=== PATIENT | male | born 1995 | race Caucasian/White ===

== ENCOUNTER 2017-04-11 18:13 | Emergency (ER) | payer OTHER ==
[2017-04-11 18:23] VITALS: BP 122/77; PULSE 77; RESP 18; TEMP 98.4
[2017-04-11] MEDS ORDERED: IBUPROFEN 600 MG TAB PO STA (18:56)
--- NOTE | 2017-04-11 18:59 | ED ---
General Adult HPI - General Chief complaint: Upper Respiratory Infection Stated complaint: Nauseated, diarrhea, congested Time Seen by Provider: 04/11/17 18:50 Source: patient, RN notes reviewed Mode of arrival: ambulatory Limitations: no limitations - History of Present Illness Initial comments: 21-year-old male presents to the emergency department with a chief complaint of cough and runny nose and congestion. Patient has extensive history for the past 2 weeks or so. He does continue to smoke. He states he had fever at the beginning of fever since resolved. Patient states he has had some nausea with it. Patient denies any increased vomiting or diarrhea. Patient denies any other symptoms at this time. Patient states is concerned due to his continued cough and congestion states that he should be evaluated.Patient denies any recent shortness of breath, chest pain, back pain, abdominal pain, nausea vomiting, numbness or tingling, dysuria or hematuria, constipation or diarrhea, headaches or visual changes, or any other current symptoms. - Related Data Home Medications Medication Instructions Recorded Confirmed Sertraline [Zoloft] 50 mg PO DAILY 12/21/15 04/25/16 Albuterol Inhaler [Ventolin Hfa 1 - 2 puff INHALATION Q6HR PRN 04/25/16 04/25/16 Inhaler] Previous Rx's Medication Instructions Recorded Albuterol Inhaler [Ventolin Hfa 1 - 2 puff INHALATION Q4-6H PRN #1 04/11/17 Inhaler] inhaler Azithromycin [Zithromax] 250 mg PO DIRECTED #6 tab 04/11/17 predniSONE 50 mg PO DAILY #5 tab 04/11/17 Allergies Allergy/AdvReac Type Severity Reaction Status Date / Time No Known Allergies Allergy Verified 04/25/16 05:58 Review of Systems ROS Statement: Those systems with pertinent positive or pertinent negative responses have been documented in the HPI. ROS Other: All systems not noted in ROS Statement are negative. Past Medical History Past Medical History: No Reported History Additional Past Medical History / Comment(s): multiplescoliosis History of Any Multi-Drug Resistant Organisms: None Reported Past Surgical History: No Surgical Hx Reported Past Psychological History: Depression Smoking Status: Current every day smoker Past Alcohol Use History: Rare Past Drug Use History: None Reported General Exam - General Exam Comments Initial Comments: General exam: Alert, active, comfortable in no apparent distress Head: Normocephalic Eyes: Normal reaction of pupils, equal size, normal range of extraocular motion Ears: normal external ear canals, pink tympanic membranes with normal cone of light Nose: clear with pink turbinates Throat: no erythema or exudates with normal sized tonsils Neck: no masses, no nuchal rigidity Chest: no chest wall deformity Lungs: equal air entry with no crackles or wheeze Abdomen: no hepatosplenomegaly, normal bowel sounds, no guarding or rigidity Spine: no scoliosis or deformity Skin: no rashes Neurological: No focal deficits, tone is normal in all 4 extremities Limitations: no limitations Course Vital Signs 04/11/17 18:18 Temperature 98.4 F Pulse Rate 77 Respiratory 18 Rate Blood Pressure 122/77 O2 Sat by Pulse 99 Oximetry Medical Decision Making - Medical Decision Making 21-year-old male presents emergency 5 chief complaint of cough cold congestion- like symptoms. This time x-rays reviewed. This was discussed patient with have a mild bronchitis. We discussed that we will the patient steroids as well as an albuterol inhaler. We discussed return parameters and follow-up outpatient family's questions. He stated the [facility] management plan. All questions have been answered. They will be discharged. - Radiology Data Radiology results: report reviewed, image reviewed Disposition Clinical Impression: Acute bronchitis Disposition: HOME SELF-CARE Condition: Stable Instructions: Acute Bronchitis (ED) Additional Instructions: Please use medication as discussed. Please follow up with family doctor if symptoms have not improved over the next two days. Please return to the emergency room if your symptoms increase or worsen or for any other concerns. Prescriptions: Albuterol Inhaler [Ventolin Hfa Inhaler] 1 - 2 puff INHALATION Q4-6H PRN #1 inhaler PRN Reason: Cough Azithromycin [Zithromax] 250 mg PO DIRECTED #6 tab predniSONE 50 mg PO DAILY #5 tab Referrals: Joel Ray MD [Primary Care Provider] - 1-2 days Time of Disposition: 19:19
--- NOTE | 2017-04-11 19:15 | XR ---
EXAMINATION TYPE: XR chest 2V DATE OF EXAM: 04/11/2017 COMPARISON: 12/31/2015 HISTORY: Cough TECHNIQUE: Frontal and lateral views of the chest are obtained. FINDINGS: There is no focal air space opacity, pleural effusion, or pneumothorax seen. The cardiac silhouette size is within normal limits. The osseous structures are intact. IMPRESSION: No acute cardiopulmonary process.
== END 2017-04-11 19:15 | disposition home or self-care (01) ==
LOC: EC 18:13
DX: J20.9 Acute bronchitis, unspecified (principal); F17.200 Nicotine dependence, unspecified, uncomplicated; Z79.899 Other long term (current) drug therapy
CPT/HCPCS: 71020; 99283

== ENCOUNTER 2018-10-05 17:30 | Emergency (ER) | payer OTHER ==
[2018-10-05 17:51] VITALS: TEMP 98.6
[2018-10-05] MEDS ORDERED: KETOROLAC 30 MG/ML 1 ML VIAL IM STA (18:19)
[2018-10-05] MEDS ORDERED: ONDANSETRON ODT 4 MG TAB PO STA (18:19)
--- NOTE | 2018-10-05 18:21 | ED ---
Abdominal Pain HPI - General Chief Complaint: Abdominal Pain Stated Complaint: Vomiting, abd pain Time Seen by Provider: 10/05/18 17:54 Source: patient Mode of arrival: ambulatory Limitations: no limitations - History of Present Illness Initial Comments: 22-year-old male patient presents to the emergency department today for evaluation of left upper quadrant abdominal pain, vomiting, diarrhea. Patient states the symptoms started this morning. States he has had several episodes of both vomiting and diarrhea. Denies any hematochezia, melena, hematemesis. Patient denies any fevers or chills with this. Denies any sick contacts or recent travel. States he has a history of multiple sclerosis but is otherwise healthy. Upon evaluation patient is eating snacks and drinking Mountain Dew. States that his nausea and diarrhea have improved however the pain in the left upper quadrant persists. States it does radiate through to his back. States it hurts worse with movement. Patient denies any recent rash, shortness breath, chest pain, numbness, tingling, dizziness, weakness, hematuria, dysuria, urinary urgency, urinary frequency, headache, visual changes, or any other complaints. - Related Data Previous Rx's Medication Instructions Recorded Acetaminophen-Codeine 300-30mg 1 tab PO Q4H PRN #20 tablet 08/14/17 [Tylenol #3] Ibuprofen 600 mg PO TID #20 tablet 08/14/17 Acetaminophen [Tylenol] 1,000 mg PO Q6H PRN #30 tab 10/05/18 Ibuprofen [Motrin] 600 mg PO Q8HR PRN #30 tab 10/05/18 Allergies Allergy/AdvReac Type Severity Reaction Status Date / Time No Known Allergies Allergy Verified 10/05/18 17:51 Review of Systems ROS Statement: Those systems with pertinent positive or pertinent negative responses have been documented in the HPI. ROS Other: All systems not noted in ROS Statement are negative. Past Medical History Past Medical History: No Reported History Additional Past Medical History / Comment(s): multiplescoliosis History of Any Multi-Drug Resistant Organisms: None Reported Past Surgical History: No Surgical Hx Reported Past Psychological History: Depression Smoking Status: Current every day smoker Past Alcohol Use History: Rare Past Drug Use History: None Reported General Exam Limitations: no limitations General appearance: alert, in no apparent distress, other (Physical well- developed, well-nourished adult male patient in no acute distress. Vital signs upon presentation are temperature 98.6F, pulse 89, respirations 16, blood pressure 103/68, pulse ox 98% on room air.) Eye exam: Present: normal appearance, PERRL, EOMI. Absent: scleral icterus, conjunctival injection, periorbital swelling Respiratory exam: Present: normal lung sounds bilaterally. Absent: respiratory distress, wheezes, rales, rhonchi, stridor Cardiovascular Exam: Present: regular rate, normal rhythm, normal heart sounds. Absent: systolic murmur, diastolic murmur, rubs, gallop, clicks GI/Abdominal exam: Present: soft, tenderness (Left upper quadrant tenderness), normal bowel sounds. Absent: distended, guarding, rebound, rigid Neurological exam: Present: alert, oriented X3, CN II-XII intact Psychiatric exam: Present: normal affect, normal mood Skin exam: Present: warm, dry, intact, normal color. Absent: rash Course Vital Signs 10/05/18 10/05/18 17:47 19:05 Temperature 98.6 F Pulse Rate 89 70 Respiratory 16 18 Rate Blood Pressure 103/68 117/67 O2 Sat by Pulse 98 97 Oximetry Medical Decision Making - Medical Decision Making 22-year-old male patient presented to the emergency department today for evaluation of vomiting and left upper quadrant abdominal pain. Physical examination did reveal some tenderness of the left upper quadrant. Upon evaluation patient was eating grits sandwich next and drinking Mountain Dew. States his nausea is improved basal having some tenderness. Vital signs are stable. Urinalysis shows no abnormalities. No ketones. KUB showed no abnormalities. Patient's tolerating oral intake. He is afebrile. He'll be discharged home at this time with starter pack for [facility]. He is instructed to follow-up with his primary care physician for recheck in 1-2 days. Return parameters were discussed in detail. He verbalizes understanding and agrees with this plan - Lab Data Lab Results 10/05/18 Range/Units Unknown Urine Color Yellow Urine Appearance Clear (Clear) Urine pH 5.5 (5.0-8.0) Ur Specific [place] 1.023 (1.001-1.035) Urine Protein Trace H (Negative) Urine Glucose (UA) Negative (Negative) Urine Ketones Negative (Negative) Urine Blood Negative (Negative) Urine Nitrite Negative (Negative) Urine Bilirubin Negative (Negative) Urine Urobilinogen 2.0 (<2.0) mg/dL Ur Leukocyte Esterase Negative (Negative) - Radiology Data Radiology results: report reviewed, image reviewed KUB x-ray of the abdomen is obtained. Report was reviewed in its entirety. Impression by Dr. Jonas shows overall nonobstructive bowel gas pattern. Disposition Clinical Impression: Gastroenteritis Disposition: HOME SELF-CARE Condition: Good Instructions (If sedation given, give patient instructions): Gastroenteritis (ED) Additional Instructions: Start with clear liquid diet and advance as tolerated. Follow-up with your primary care physician for recheck in 1-2 days. Return to the emergency department immediately for any new, worsening, or concerning symptoms. Prescriptions: Ibuprofen [Motrin] 600 mg PO Q8HR PRN #30 tab PRN Reason: Pain Acetaminophen [Tylenol] 1,000 mg PO Q6H PRN #30 tab PRN Reason: Pain Is patient prescribed a controlled substance at d/c from ED?: No Referrals: Joel Ray MD [Primary Care Provider] - 1-2 days Time of Disposition: 18:58
[2018-10-05 18:40] LABS: Appearance,Urine Clear (Clear); Bilirubin,Urine Negative (Negative); Blood,Urine Negative (Negative); Color,Urine Yellow; Glucose,Urine (UA) Negative (Negative); Ketones,Urine Negative (Negative); Leukocyte Esterase,Urine Negative (Negative); Nitrite,Urine Negative (Negative); PH, Urine 5.5 (5.0-8.0); Protein,Urine Trace (Negative); Specific Gravity,Urine 1.023 (1.001-1.035)
--- NOTE | 2018-10-05 18:45 | XR ---
EXAMINATION TYPE: XR KUB DATE OF EXAM: 10/05/2018 COMPARISON: NONE HISTORY: Pain TECHNIQUE: Single supine KUB image of the abdomen is obtained FINDINGS: Small bowel demonstrates no evidence for dilatation or air fluid levels. Gas and fecal material is seen in non-distended colon. No convincing evidence for pneumoperitoneum. No unusual calcifications. The lung bases are clear. The osseous structures are intact. IMPRESSION: 1. Overall nonobstructive bowel gas pattern.
[2018-10-05] MEDS ORDERED: ONDANSETRON 4 MG ODT STARTER PACK 2 TAB BTL PO STA (18:56)
[2018-10-05 19:06] VITALS: BP 117/67; PULSE 70; RESP 18
== END 2018-10-05 19:06 | disposition home or self-care (01) ==
LOC: EC 17:30
DX: K52.9 Noninfective gastroenteritis and colitis, unspecified (principal); F17.200 Nicotine dependence, unspecified, uncomplicated; Z87.39 Personal history of other diseases of the musculoskeletal system and connective tissue
CPT/HCPCS: 81003; 74018; 99284; 96372; J1885; S0119

== ENCOUNTER 2021-02-18 02:59 | Inpatient (IN) | payer MEDICARE, MEDICAID ==
--- NOTE | 2021-02-18 03:15 | ED ---
Psych HPI - General Chief Complaint: Psychiatric Symptoms Stated Complaint: Mental Health Time Seen by Provider: 02/18/21 03:01 Source: patient, RN notes reviewed, old records reviewed Mode of arrival: ambulatory Limitations: no limitations - History of Present Illness Initial Comments: This is a 25-year-old male to the ER for psychiatric evaluation. Patient states he does want to kill himself patient is off her psychiatric meds is currently homeless and has no open the future. Patient here for suicidal thoughts wants to kill himself MD Complaint: suicidal ideation -: month(s) Associated Psychiatric Symptoms: depression, suicidal ideation History of same: Yes Quality: getting worse Improves With: none Worsens With: none Context: not taking psychiatric medications, significant life stressor Associated Symptoms: denies other symptoms Treatments Prior to Arrival: placed on mental health hold If Self Harm: admits thoughts of self harm - Related Data Previous Rx's Medication Instructions Recorded Acetaminophen-Codeine 300-30mg 1 tab PO Q4H PRN #20 tablet 08/14/17 [Tylenol #3] Ibuprofen 600 mg PO TID #20 tablet 08/14/17 Acetaminophen [Tylenol] 1,000 mg PO Q6H PRN #30 tab 10/05/18 Ibuprofen [Motrin] 600 mg PO Q8HR PRN #30 tab 10/05/18 Allergies Allergy/AdvReac Type Severity Reaction Status Date / Time amoxicillin Allergy Rash/Hives Verified 02/18/21 03:05 Penicillins Allergy Rash/Hives Verified 02/18/21 03:05 Review of Systems ROS Statement: Those systems with pertinent positive or pertinent negative responses have been documented in the HPI. ROS Other: All systems not noted in ROS Statement are negative. Past Medical History Past Medical History: No Reported History Additional Past Medical History / Comment(s): multiplescoliosis History of Any Multi-Drug Resistant Organisms: None Reported Past Surgical History: No Surgical Hx Reported Past Psychological History: Anxiety, Depression, Schizophrenia Smoking Status: Former smoker Past Alcohol Use History: Rare Past Drug Use History: Marijuana General Exam Limitations: no limitations General appearance: alert, in no apparent distress Head exam: Present: atraumatic, normocephalic, normal inspection Eye exam: Present: normal appearance, PERRL, EOMI. Absent: scleral icterus, conjunctival injection, periorbital swelling ENT exam: Present: normal exam, mucous membranes moist Neck exam: Present: normal inspection. Absent: tenderness, meningismus, lymphadenopathy Respiratory exam: Present: normal lung sounds bilaterally. Absent: respiratory distress, wheezes, rales, rhonchi, stridor Cardiovascular Exam: Present: regular rate, normal rhythm, normal heart sounds. Absent: systolic murmur, diastolic murmur, rubs, gallop, clicks GI/Abdominal exam: Present: soft, normal bowel sounds. Absent: distended, tenderness, guarding, rebound, rigid Extremities exam: Present: normal inspection, full ROM, normal capillary refill. Absent: tenderness, pedal edema, joint swelling, calf tenderness Back exam: Present: normal inspection Neurological exam: Present: alert, oriented X3, CN II-XII intact Psychiatric exam: Present: normal affect, normal mood Skin exam: Present: warm, dry, intact, normal color. Absent: rash Course Vital Signs 02/18/21 03:00 Temperature 97.5 F L Pulse Rate 72 Respiratory 20 Rate Blood Pressure 115/71 O2 Sat by Pulse 99 Oximetry - Reevaluation(s) Reevaluation #1: 02/18/21 03:15 Medical records reviewed Reevaluation #2: 02/18/21 05:26 Medically clear for psychiatric evaluation Medical Decision Making - Medical Decision Making 25 male seen and has been eval by psychiatry, patient will be admitted for psychiatric evaluation and treatment Disposition Clinical Impression: Depression, Suicidal ideation Disposition: TRANSFER TO PSYCH HOSP/UNIT Condition: Fair
[2021-02-18] MEDS ORDERED: MAGNESIUM HYDROXIDE 2,400 MG/10 ML CUP PO PRN (05:22)
[2021-02-18] MEDS ORDERED: MAG HYDROX/AL HYDROX/SIMETH 30 ML CUP PO PRN (05:22)
[2021-02-18] MEDS ORDERED: ACETAMINOPHEN TAB 325 MG TAB PO PRN (05:22)
[2021-02-18] MEDS ORDERED: LORazepam 2 MG/ML INJ IM PRN (05:31)
[2021-02-18] MEDS ORDERED: HALOPERIDOL LACTATE 5 MG/ML 1 ML VIAL IM PRN (05:32)
[2021-02-18] MEDS ORDERED: haloperidoL 5 MG TAB PO PRN (05:32)
[2021-02-18 07:22] VITALS: RESP 16
[2021-02-18 10:02] LABS: Basophils # (A) 0.1 k/uL (0-0.2); Basophils % (A) 1 %; Eosinophils # (A) 0.4 k/uL (0-0.7); Eosinophils % (A) 6 %; HCT 42.6 % (39.0-53.0); HGB 15.2 gm/dL (13.0-17.5); Lymphocytes # (A) 3.1 k/uL (1.0-4.8); Lymphocytes % (A) 39 %; MCH 32.1 pg (25.0-35.0); MCHC 35.6 g/dL (31.0-37.0); MCV 90.2 fL (80.0-100.0); Mean Platelet Volume 6.5; Monocytes # (A) 0.5 k/uL (0-1.0); Monocytes % (A) 6 %; Neutrophils # (A) 3.7 k/uL (1.3-7.7); Neutrophils % (A) 46 %; Platelet Count 290 k/uL (150-450); RBC 4.72 m/uL (4.30-5.90); RDW 13.4 % (11.5-15.5)
[2021-02-18 10:16] LABS: ALT 11 U/L (4-49); AST 23 U/L (17-59); African American GFR (CKD) >90 (>60 ml/min/1.73 sqM); Albumin 3.7 g/dL (3.5-5.0); Alkaline Phosphatase 68 U/L (38-126); Anion Gap 6 mmol/L; Blood Urea Nitrogen 14 mg/dL (9-20); Calcium 9.5 mg/dL (8.4-10.2); Carbon Dioxide 26 mmol/L (22-30); Chloride 106 mmol/L (98-107); Glucose 87 mg/dL (74-99); Non-African American GFR(CKD) >90 (>60 ml/min/1.73 sqM); Sodium 138 mmol/L (137-145); Total Bilirubin 0.5 mg/dL (0.2-1.3); Total Protein 6.2 g/dL (6.3-8.2)
[2021-02-18] MEDS: NICOTINE 14MG/24HR PATCH TRANSDERM SCH (11:48)
--- NOTE | 2021-02-18 12:07 | P.HP ---
Psychiatric H&P - . H&P Date: 02/18/21 History & Physical: Allergies Allergy/AdvReac Type Severity Reaction Status Date / Time amoxicillin Allergy Rash/Hives Verified 02/18/21 03:05 Penicillins Allergy Rash/Hives Verified 02/18/21 03:05 Vital Signs Temp 98.5 F 02/18/21 05:40 Pulse 72 02/18/21 05:40 Resp 16 02/18/21 05:40 BP 127/68 02/18/21 05:40 Pulse Ox 98 02/18/21 05:40 Intake & Output 02/17/21 02/18/21 02/18/21 18:59 06:59 18:59 Weight 71.753 kg Laboratory Last Values WBC 8.0 k/uL (3.8-10.6) 02/18/21 09:40 RBC 4.72 m/uL (4.30-5.90) 02/18/21 09:40 Hgb 15.2 gm/dL (13.0-17.5) 02/18/21 09:40 Hct 42.6 % (39.0-53.0) 02/18/21 09:40 MCV 90.2 fL (80.0-100.0) 02/18/21 09:40 MCH 32.1 pg (25.0-35.0) 02/18/21 09:40 MCHC 35.6 g/dL (31.0-37.0) 02/18/21 09:40 RDW 13.4 % (11.5-15.5) 02/18/21 09:40 Plt Count 290 k/uL (150-450) 02/18/21 09:40 MPV 6.5 02/18/21 09:40 Neutrophils % 46 % 02/18/21 09:40 Lymphocytes % 39 % 02/18/21 09:40 Monocytes % 6 % 02/18/21 09:40 Eosinophils % 6 % 02/18/21 09:40 Basophils % 1 % 02/18/21 09:40 Neutrophils # 3.7 k/uL (1.3-7.7) 02/18/21 09:40 Lymphocytes # 3.1 k/uL (1.0-4.8) 02/18/21 09:40 Monocytes # 0.5 k/uL (0-1.0) 02/18/21 09:40 Eosinophils # 0.4 k/uL (0-0.7) 02/18/21 09:40 Basophils # 0.1 k/uL (0-0.2) 02/18/21 09:40 Sodium 138 mmol/L (137-145) 02/18/21 09:40 Potassium 4.0 mmol/L (3.5-5.1) 02/18/21 09:40 Chloride 106 mmol/L (98-107) 02/18/21 09:40 Carbon Dioxide 26 mmol/L (22-30) 02/18/21 09:40 Anion Gap 6 mmol/L 02/18/21 09:40 BUN 14 mg/dL (9-20) 02/18/21 09:40 Creatinine 0.72 mg/dL (0.66-1.25) 02/18/21 09:40 Est GFR (CKD-EPI)AfAm >90 (>60 ml/min/1.73 sqM) 02/18/21 09:40 Est GFR (CKD-EPI)NonAf >90 (>60 ml/min/1.73 sqM) 02/18/21 09:40 Glucose 87 mg/dL (74-99) 02/18/21 09:40 Calcium 9.5 mg/dL (8.4-10.2) 02/18/21 09:40 Total Bilirubin 0.5 mg/dL (0.2-1.3) 02/18/21 09:40 AST 23 U/L (17-59) 02/18/21 09:40 ALT 11 U/L (4-49) 02/18/21 09:40 Alkaline Phosphatase 68 U/L (38-126) 02/18/21 09:40 Total Protein 6.2 g/dL (6.3-8.2) L 02/18/21 09:40 Albumin 3.7 g/dL (3.5-5.0) 02/18/21 09:40 TSH 0.631 mIU/L (0.465-4.680) 02/18/21 09:40 02/18/21 11:43 Identification: Laron Hester is a 25 years old single white male living in [facility]. He was admitted to [facility] on 02/18/2021 since he reported of feeling depressed and having suicide thoughts. History of present illness: Patient said he has been depressed since age 12 or 13. He said it is continuous and gets worse lasting for weeks to months. When he is badly depressed he does not do anything and 6 in silence. He did not describe any other symptoms of depression. He said he had taken Zoloft and Paxi l in the past from his family doctor and apparently Paxil had helped him. Even though he reports of being depressed since 12 or 13 years of age which gets worse lasting for weeks to months he has not seen a psychiatrist, therapist and did not have any ongoing treatment. He could not tell me if he had manic episodes. He said he was having suicidal thoughts on and off for a long time in the past, had tried to cut himself and to drown himself in addition to overdosing a few times. However he never required any treatment for this. He said he had cut himself several times and to collect up he got several tattoos. I could not see any scars from cutting himself. He later on said spontaneously that he is a schizophrenic also. He said he hears voices which are mumbling and they do not tell him to do anything. He denied delusional thinking. He had never taken any medications for "schizophrenia". He said he does not have any anger management issues. Previous psychiatric history/drug and alcohol abuse: He was never in the psychiatric hospital and was never treated by a mental health professional's even though he said he has been depressed for the last about 12-13 years. He said he was a heavy alcoholic for 2 years and his last drink was 2 years ago. He had blackouts but he did not have any DUI or PI. He said he was smoking meant for 3 years and his last smoke was 1 month ago he said he was smoking pot 18 of an ounce a day since age 13. His last use was a month ago. He has been smoking a pack and half of cigarettes a day since age 12. He said he had graduated from high school was in special ed and was a slow learner. He had repeated 11th grade. He said he used to cut classes and was not paying attention to teacher and was suspended several times and was also kicked out he said he was in alternate school for 2 weeks. He said he did not have any problems with juvenile court system or [place] court system once she became an adult. He was raised by his parents and he said he does not know anything about his family since all of them mood [id number]. Currently he is homeless for the last few days and [place]. He said he was living with a friend of his, they did not get along and he was asked to leave. He did not want to discuss about the details of the problems. He does not know where he will go when he leaves the hospital. He is single and unemployed he has Medicare and Medicaid and gets probably SSI check. Previous medical history: He said he has COPD and is not on any medication. He is ALLERGIC to penicillin and amoxicillin. He did not have any surgery. Family history: He said his family moved [id number] and does not know anything about his family history of medical/psychiatric problems. Mental status examination: This is a right ambulatory male with adequate hygiene. He is wearing hospital gown. His hair is poorly combed and looks rather unkempt. His left eyebrow and earlobes are pierced and has a jewelry on his left eyebrow. He has multiple tattoos all over the body. He does not show any psychomotor agitation or retardation. His speech is spontaneous relevant and goal-directed. His mood is euthymic and affect is appropriate to the thought content and it does not match with his reported history of depression or schizophrenia. He said he is still having suicidal thoughts. Denies homicidal thoughts. Reports of hallucinations. But he does not have any objective signs of psychosis. Denies delusional thinking. He is well oriented with good memory concentration and general fund of knowledge. However he said he does not know anything about his family since all of them had moved [id number]. His insight is either poor or made up and judgment is impaired as evidenced by substance abuse not having a place to live and sleeping in the park. Diagnostic impression: 1. Even though he reports symptoms of depression his clinical findings do not support that. It is very likely that he is making up these symptoms since he is homeless and needs a place to live. 2. Cannabis use disorder severe. 3. Stimulant use disorder moderate to severe. 4. Alcohol use disorder severe in remission. 5. Personality disorder unspecified with borderline features. Treatment plan: He will have physical examination and psychosocial evaluation. He will be observed/supervised regarding his reported suicidal thoughts and self abusive behavior. I will start him on Paxil per his request even though it does not appear to be indicated. He will attend group and individual therapy sessi ons. Discharge with outpatient follow-up.
[2021-02-18 17:51] LABS: Hemoglobin A1C 4.5 % (4.0-6.0)
[2021-02-18 20:10] LABS: Appearance,Urine Cloudy (Clear); Bilirubin,Urine Negative (Negative); Blood,Urine Negative (Negative); Calcium Oxalate Crystals,Urine Many /hpf; Color,Urine Yellow; Glucose,Urine (UA) Negative (Negative); Ketones,Urine Negative (Negative); Leukocyte Esterase,Urine Moderate (Negative); Mucus,Urine Many /hpf; Nitrite,Urine Negative (Negative); PH, Urine 5.5 (5.0-8.0); Protein,Urine Trace (Negative); RBC,Urine 3 /hpf (0-5); Specific Gravity,Urine 1.026 (1.001-1.035); WBC,Urine 7 /hpf (0-5)
[2021-02-18] MEDS: LORazepam 1 MG TAB PO PRN (22:10)
--- NOTE | 2021-02-18 22:34 | CONS ---
CONSULTATION CHIEF COMPLAINT: Major depression. HISTORY OF PRESENT ILLNESS: This is another admission for this 25-year-old white male. He had been living in [facility] for several days and becoming more depressed and despondent. He considered suicide and then called somebody who told him to go to the emergency room and he was admitted. REVIEW OF SYSTEMS: He has had no headaches, seizures, chest pain, shortness of breath, abdominal pain, nausea, vomiting, hematemesis, melena, hematochezia, jaundice, renal failure, frequency, urgency and dysuria, diabetes, etc. Past medical history, family history, personal and social histories reveal that he is ALLERGIC to PENICILLIN. He has not been seen in the office since May 2019. He does smoke. He does not drink heavily or use drugs. PHYSICAL EXAMINATION: Blood pressure is 132/80 with a pulse of 76, respirations of 17. He is afebrile. In general, he appeared to be slender, well developed, well nourished, in no acute distress. Skin color is normal skin is warm, dry. Lymph nodes were not enlarged. Head, ears, eyes, nose, mouth and throat were normal. Neck veins are not distended. Thyroid not enlarged. Chest is clear. Cardiac exam is normal. Abdomen is soft and nontender. Extremities: Normal. Neurologically he is intact. IMPRESSION: He is admitted to the hospital with diagnoses: Major depression. PLAN: Psychiatric management with close followup. Thank you respectfully for this consultation. MMODL / IJN: [id number] /
[2021-02-19] MEDS: PARoxetine 10 MG TAB PO SCH (08:36)
[2021-02-19] MEDS: NICOTINE 14MG/24HR PATCH TRANSDERM SCH (08:36)
--- NOTE | 2021-02-19 11:01 | P.PN ---
Progress Note - Text Progress Note Date: 02/19/21 Interval History: Patient was seen in the TV room and was directable and agreeable to speak with scientific writer in the office. This is a 25-year-old single male. He is the father of 1 child. He receives Social Security disability income. He is currently homeless. Patient was admitted due to severe depression with suicidal ideation without a plan. Currently he is being treated for depression and stimulant use disorder. Patient indicated tolerating Paxil well. He states his depression is improving. He denies having thoughts of suicide. He reported having poor appetite and sleep difficulties. Patient states his drug of choice was methamphetamine. Patient talked about his sobriety plan which is to spend more time with his child, to attend NA meetings and to start therapy. Patient denies any auditory, visual hallucinations and denies any paranoia or delusions. Patient denies any side effects from the medications and has been compliant with meds. Mental Status Exam: General Appearance: [Patient appears to be stated age is alert, directable, and cooperative.] Behavior: [Patient is calmly seated without any agitated behavior.] Speech: Patient's speech is fluent and nonpressured. Mood/Affect: Mood is improving mildly, affect is congruent and constricted. Suicidality/Homicidality: Patient denies having any suicidal or homicidal ideation intent or plan. Perceptions: Patient denies any visual hallucinations [and denies any auditory hallucinations] Though content/process: [There is no evidence of any delusional thought content and thought process is linear and goal-directed.] Memory and concentration: AOX3, grossly intact for the purposes of this session Judgment and insight: Improving mildly Assessment Depressive disorder recurrent Stimulant use disorder Cannabis use disorder History of alcohol use disorder currently in remission Plan: -Patient continues to meet criteria for inpatient psychiatric admission for symptom stabilization and safety. -Medications: Augmentin his treatment with Mirtazipine 7.5 mg nightly for insomnia and continue Paxil 10 mg daily for depression -When necessary Ativan and Haldol for agitation/aggression. -NRT - [nicotine patch] - Patient states that he will go to a long term after being discharged -SW on board for discharge planning. Encouraged the patient to participate in milieu.
[2021-02-19 11:03] LABS: Urine Alcohol Negative (Negative); Urine Barbiturate Negative (Negative); Urine Cocaine Negative (Negative); Urine Methadone Negative (Negative); Urine Opiates Negative (Negative); Urine Phencyclidine Negative (Negative)
[2021-02-19] MEDS: MIRTAZAPINE 15 MG TAB PO SCH (20:30)
[2021-02-19] MEDS: LORazepam 1 MG TAB PO PRN (21:25)
[2021-02-20] MEDS: NICOTINE 14MG/24HR PATCH TRANSDERM SCH (08:21)
[2021-02-20] MEDS: PARoxetine 10 MG TAB PO SCH (08:21)
--- NOTE | 2021-02-20 15:44 | P.PN ---
Progress Note - Text Progress Note Date: 02/20/21 Interval History: Patient was seen for follow-up examination . [This is a 25-year-old single [place] male. He is the father of 1 child. He receives Social Security disability income. He is currently homeless. Currently he is being treated for depression and stimulant use disorder. He states his depression is better. He denies having thoughts of suicide. Patient reported that he slept better last night after he took Remeron. He indicated tolerating and responding favorably to his current medication regimen which included Paxil and Remeron. Patient states his drug of choice was methamphetamine. Patient talked about his sobriety plan which is to spend more time with his child, to attend NA meetings and to start therapy. Patient denies any auditory, visual hallucinations and denies any paranoia or delusions. Patient denies any side effects from the medications and has been compliant with meds. . At this time patient denies any suicidal or homical ideations, intent or plan. Patient denies any auditory, visual hallucinations and denies any paranoia or delusions. Patient denies any side effects from the medications and has been compliant with meds. Mental Status Exam: General Appearance: Patient appears to be stated age is alert, directable, and cooperative. Behavior: Patient is calmly seated without any agitated behavior. Speech: Patient's speech is fluent and nonpressured. Mood/Affect: Mood is improving mildly, affect is congruent and constricted. Suicidality/Homicidality: Patient denies having any suicidal or homicidal ideation intent or plan. Perceptions: Patient denies any visual hallucinations and denies any auditory hallucinations Though content/process: There is no evidence of any delusional thought content and thought process is linear and goal-directed. Memory and concentration: AOX3, grossly intact for the purposes of this session Judgment and insight: Improving mildly Assessment Depressive disorder recurrent Stimulant use disorder Cannabis use disorder History of alcohol use disorder currently in remission Plan: -Patient continues to meet criteria for inpatient psychiatric admission for symptom stabilization and safety. -Medications: Continue Paxil 10 mg daily for depression and Mirtazipine 7.5 mg nightly for insomnia and monitor . -When necessary Ativan and Haldol for agitation/aggression. -NRT - nicotine patch - Patient states that he will go to a long-term after being discharged -SW on board for discharge planning. Encouraged the patient to participate in milieu.
[2021-02-20] MEDS: MIRTAZAPINE 15 MG TAB PO SCH (20:12)
[2021-02-20] MEDS: LORazepam 1 MG TAB PO PRN (21:23)
[2021-02-21 07:00] VITALS: BP 121/73; PULSE 65; TEMP 97.8
[2021-02-21] MEDS: PARoxetine 10 MG TAB PO SCH (08:25)
[2021-02-21] MEDS: NICOTINE 14MG/24HR PATCH TRANSDERM SCH (08:25)
--- NOTE | 2021-02-21 11:24 | P.DS ---
Providers Date of admission: 02/18/21 05:16 Expected date of discharge: 02/21/21 Attending physician: Surjit Yoon MD Consults: 02/18/21 05:22 Consult Physician Routine Consulting Provider: Joel Ray Consult Reason/Comments: H&P Do you want consulting provider notified?: Yes, Notify in am Primary care physician: Joel Ray - Discharge Diagnosis(es) (1) Major depressive disorder, recurrent severe without psychotic features Current Visit: Yes Status: Acute Priority: High (2) Stimulant abuse Current Visit: Yes Status: Acute Priority: Medium (3) Cannabis use disorder, mild, abuse Current Visit: Yes Status: Acute Priority: Medium (4) History of alcohol use disorder Current Visit: Yes Status: Acute Priority: Low Hospital Course: Admission HPI: Admission note was completed by Dr. Sullivan "Venessa Hester is a 25 years old single white male living in [facility]. He was [facility] to [facility] on 02/18[facility]2021 since he reported of feeling depressed and having suicide thoughts. Patient said he has been depressed since age 12 or 13. He said it is continuous and gets worse lasting for weeks to months. When he is badly depressed he does not do anything and 6 in silence. He did not describe any other symptoms of depression. He said he had taken Zoloft and Paxil in the past from his family doctor and apparently Paxil had helped him. Even though he reports of being depressed since 12 or 13 years of age which gets worse lasting for weeks to months he has not seen a psychiatrist, therapist and did not have any ongoing treatment. He could not tell me if he had manic episodes. He said he was having suicidal thoughts on and off for a long time in the past, had tried to cut himself and to drown himself in addition to overdosing a few times. However he never required any treatment for this. He said he had cut himself several times and to collect up he got several tattoos. I could not see any scars from cutting himself. He later on said spontaneously that he is a schizophrenic also. He said he hears voices which are mumbling and they do not tell him to do anything. He denied delusional thinking. He had never taken any medications for "schizophrenia". He said he does not have any anger management issues.]" Hospital course: Upon admission to the unit patient was initially [depressed and withdrawn]. P atient was however [directable and agreeable to commence treatment and signed adult voluntary form]. Patient got along well with other patients on the unit and followed unit protocol. Patient was compliant with the medications and denied any side effects throughout hospital course. Patient was started on Paxil 10 mg daily for depression and Remeron 7.5 mg daily at bedtime for insomnia/mood. Patient spoke of [his] stressors and engaged in therapy both group and individual. Patient was also seen by medical team for history and physical exam. [] Throughout the course of the hospitalization patient gradually improved with regards to [mood, anxiety], sleep and became more future oriented with improved insight and judgment. On the day of discharge patient denied any suicidal or homicidal ideations intent or plan denied any auditory or visual hallucinations. Patient endorsed wanting to live for [his health, his kid and family.] The patient denied any access to guns or weapons. Patient denied any paranoia and did not endorse any delusions. Patient does have a significant history of substance abuse [and] was counseled on abstaining from all substances including alcohol and marijuana. [Patient was offered however declined inpatient substance-abuse rehab.] [Patient elected to do outpatient substance use treatment program through [facility].] Patient was also counseled on the medications and need for regular compliance and was encouraged to follow-up with their outpatient appointment for mental health and also for primary care. [Prior to discharge a family meeting will be arranged by administrator social welfare to answer any questions and ensure safety upon discharge.] Mental status exam: General Appearance: Patient appears to be []stated age is alert, pleasant, and cooperative. Patient is in no acute distress and has improved hygiene and grooming Behavior: Patient is calmly seated without any agitated behavior. Speech: Patient's speech is fluent and nonpressured. Mood/Affect: Patient reports their mood is "[better]", affect is congruent and euthymic. Suicidality/Homicidality: Patient denies having any suicidal or homicidal ideation intent or plan. Perceptions: Patient denies any auditory or visual hallucinations. Though content/process: There is no evidence of any delusional thought content and thought process is linear and goal-directed. [more future oriented] Memory and concentration: AOX3, grossly intact for the purposes of this session. Can spell "WORLD" backwards correctly. Judgment and insight: improved with guarded prognosis Impression: Major depressive disorder, recurrent, severe without psychotic features Stimulant abuse Cannabis use disorder mild History of alcohol use disorder or currently in remission, Plan: -Continue with discharge today as patient has improved and stabilized psychiatrically and is not currently an imminent threat to [himself] and/or others. -Continue medications: [Continue Paxil 10 mg daily for depression, Remeron 7.5 mg daily at bedtime for insomnia/mood.] -Patient was counseled on the need for medication compliance and appropriate follow-up at mental health and also primary care for medical issues. Patient verbalized understanding and agreed. -Social work to [arrange for and conduct family meeting to ensure safety upon discharge and answer any questions/concerns.] Social work also to arrange for patients follow up appointments [with [facility]] for psychiatric care along with follow up with primary care provider. -Patient is currently homeless and would like to either go to the intermediate today or if not then go stay with his sister. -Patient counseled on abstaining from recreational drugs and marijuana and alcohol. Was informed/educated on the adverse effects on their physical and mental health. [Patient verbally agreed and understood]. [Patient was offered substance abuse treatment however declined at this time.] -Patient was instructed to return to the hospital or seek immediate medical care if their psychiatric or medical symptoms do worsen or reoccur. Allergies Allergy/AdvReac Type Severity Reaction Status Date / Time amoxicillin Allergy Rash/Hives Verified 02/18/21 03:05 Penicillins Allergy Rash/Hives Verified 02/18/21 03:05 Laboratory Results WBC 8.0 k/uL (3.8-10.6) 02/18/21 09:40 RBC 4.72 m/uL (4.30-5.90) 02/18/21 09:40 Hgb 15.2 gm/dL (13.0-17.5) 02/18/21 09:40 Hct 42.6 % (39.0-53.0) 02/18/21 09:40 MCV 90.2 fL (80.0-100.0) 02/18/21 09:40 MCH 32.1 pg (25.0-35.0) 02/18/21 09:40 MCHC 35.6 g/dL (31.0-37.0) 02/18/21 09:40 RDW 13.4 % (11.5-15.5) 02/18/21 09:40 Plt Count 290 k/uL (150-450) 02/18/21 09:40 MPV 6.5 02/18/21 09:40 Neutrophils % 46 % 02/18/21 09:40 Lymphocytes % 39 % 02/18/21 09:40 Monocytes % 6 % 02/18/21 09:40 Eosinophils % 6 % 02/18/21 09:40 Basophils % 1 % 02/18/21 09:40 Neutrophils # 3.7 k/uL (1.3-7.7) 02/18/21 09:40 Lymphocytes # 3.1 k/uL (1.0-4.8) 02/18/21 09:40 Monocytes # 0.5 k/uL (0-1.0) 02/18/21 09:40 Eosinophils # 0.4 k/uL (0-0.7) 02/18/21 09:40 Basophils # 0.1 k/uL (0-0.2) 02/18/21 09:40 Sodium 138 mmol/L (137-145) 02/18/21 09:40 Potassium 4.0 mmol/L (3.5-5.1) 02/18/21 09:40 Chloride 106 mmol/L (98-107) 02/18/21 09:40 Carbon Dioxide 26 mmol/L (22-30) 02/18/21 09:40 Anion Gap 6 mmol/L 02/18/21 09:40 BUN 14 mg/dL (9-20) 02/18/21 09:40 Creatinine 0.72 mg/dL (0.66-1.25) 02/18/21 09:40 Est GFR (CKD-EPI)AfAm >90 (>60 ml/min/1.73 sqM) 02/18/21 09:40 Est GFR (CKD-EPI)NonAf >90 (>60 ml/min/1.73 sqM) 02/18/21 09:40 Glucose 87 mg/dL (74-99) 02/18/21 09:[address] Glu mg/dL 82 02/18/21 09:40 Hemoglobin A1c 4.5 % (4.0-6.0) 02/18/21 09:40 Calcium 9.5 mg/dL (8.4-10.2) 02/18/21 09:40 Total Bilirubin 0.5 mg/dL (0.2-1.3) 02/18/21 09:40 AST 23 U/L (17-59) 02/18/21 09:40 ALT 11 U/L (4-49) 02/18/21 09:40 Alkaline Phosphatase 68 U/L (38-126) 02/18/21 09:40 Total Protein 6.2 g/dL (6.3-8.2) L 02/18/21 09:40 Albumin 3.7 g/dL (3.5-5.0) 02/18/21 09:40 TSH 0.631 mIU/L (0.465-4.680) 02/18/21 09:40 Urine Color Yellow 02/18/21 19:56 Urine Appearance Cloudy (Clear) 02/18/21 19:56 Urine pH 5.5 (5.0-8.0) 02/18/21 19:56 Ur Specific [place] 1.026 (1.001-1.035) 02/18/21 19:56 Urine Protein Trace (Negative) H 02/18/21 19:56 Urine Glucose (UA) Negative (Negative) 02/18/21 19:56 Urine Ketones Negative (Negative) 02/18/21 19:56 Urine Blood Negative (Negative) 02/18/21 19:56 Urine Nitrite Negative (Negative) 02/18/21 19:56 Urine Bilirubin Negative (Negative) 02/18/21 19:56 Urine Urobilinogen 2.0 mg/dL (<2.0) 02/18/21 19:56 Ur Leukocyte Esterase Moderate (Negative) H 02/18/21 19:56 Urine RBC 3 /hpf (0-5) 02/18/21 19:56 Urine WBC 7 /hpf (0-5) H 02/18/21 19:56 Calcium Oxalate Crystal Many /hpf (None) H 02/18/21 19:56 Urine Mucus Many /hpf (None) H 02/18/21 19:56 Urine Opiates Screen Negative ng/mL (Negative) 02/18/21 19:56 Urine Methadone Screen Negative ng/mL (Negative) 02/18/21 19:56 Ur Propoxyphene Screen Negative ng/mL (Negative) 02/18/21 19:56 Urine Barbiturates Negative ng/mL (Negative) 02/18/21 19:56 Ur Phencyclidine Scrn Negative ng/mL (Negative) 02/18/21 19:56 Ur Amphetamine Screen Positive ng/mL (Negative) A 02/18/21 19:56 U Benzodiazepines Scrn Negative ng/mL (Negative) 02/18/21 19:56 Urine Cocaine Screen Negative ng/mL (Negative) 02/18/21 19:56 U Cannabinoids Screen Positive ng/mL (Negative) A 02/18/21 19:56 Urine Alcohol Negative mg/dL (Negative) 02/18/21 19:56 Vital Signs Temp 97.8 F 02/21/21 06:45 Pulse 65 02/21/21 06:45 Resp 16 02/21/21 06:45 BP 121/73 02/21/21 06:45 Pulse Ox 98 02/18/21 05:40 Patient Condition at Discharge: Stable Plan - Discharge Summary Discharge Rx Participant: No New Discharge Prescriptions: New Nicotine 14Mg/24Hr Patch [Habitrol] 1 patch TRANSDERM DAILY 14 Days patch Mirtazapine [Remeron] 7.5 mg PO HS 30 Days tab PARoxetine [Paxil] 10 mg PO DAILY 30 Days tab Discharge Medication List Mirtazapine [Remeron] 7.5 mg PO HS 30 Days tab 02/21/21 [Rx] Nicotine 14Mg/24Hr Patch [Habitrol] 1 patch TRANSDERM DAILY 14 Days patch 02/21/21 [Rx] PARoxetine [Paxil] 10 mg PO DAILY 30 Days tab 02/21/21 [Rx] Follow up Appointment(s)/Referral(s): Joel Ray MD [Primary Care Provider] - 1-2 days Activity/Diet/Wound Care/Special Instructions: Activity and diet as tolerated. Avoid the use of street drugs and alcohol. Take all medications as prescribed. When you are in need of refills on your medications please contact your medical provider and/or outpatient psychiatrist to have this done. Please go to scheduled outpatient appointment for aftercare treatment. If symptoms return or become worse, call the crisis line at and/or go to the nearest emergency room for evaluation. Discharge Disposition: OTHER INSTITUTION NOT DEFINED
== END 2021-02-21 13:50 | disposition home or self-care (01) | DRG 885 ==
LOC: EC 02:59 → 3MHU 05:16
PROVIDERS: ADMIT Psychiatry & Neurology Psychiatry; ATTEND Psychiatry & Neurology Psychiatry
DX: F33.2 Major depressive disorder, recurrent severe without psychotic features (principal); R45.851 Suicidal ideations; F41.9 Anxiety disorder, unspecified; F10.21 Alcohol dependence, in remission; F15.10 Other stimulant abuse, uncomplicated; F12.10 Cannabis abuse, uncomplicated; F20.9 Schizophrenia, unspecified; F60.9 Personality disorder, unspecified; G47.00 Insomnia, unspecified; J44.9 Chronic obstructive pulmonary disease, unspecified; Z59.0 Homelessness; Z79.899 Other long term (current) drug therapy; Z88.0 Allergy status to penicillin; F17.210 Nicotine dependence, cigarettes, uncomplicated
CPT/HCPCS: 80053; 80306; 81001; 82075; 83036; 84443; 85025; 99285

== ENCOUNTER 2021-02-27 04:48 | Emergency (ER) | payer MEDICARE, OTHER ==
[2021-02-27 04:56] VITALS: BP 90/58; PULSE 117; RESP 19; TEMP 98.1
--- NOTE | 2021-02-27 05:40 | XR ---
EXAMINATION TYPE: XR ankle complete LT DATE OF EXAM: 02/27/2021 COMPARISON: NONE HISTORY: Pain TECHNIQUE: 3 views FINDINGS: Ankle mortise is anatomic. I see no fracture nor dislocation. Joint spaces are normal. IMPRESSION: Negative left ankle exam. No fracture.
--- NOTE | 2021-02-27 05:53 | ED ---
Lower Extremity Injury HPI - General Chief Complaint: Extremity Injury, Lower Stated Complaint: Left foot injury Time Seen by Provider: 02/27/21 05:03 Source: patient Mode of arrival: ambulatory - Related Data Previous Rx's Medication Instructions Recorded Mirtazapine [Remeron] 7.5 mg PO HS 30 Days tab 02/21/21 Nicotine 14Mg/24Hr Patch [Habitrol] 1 patch TRANSDERM DAILY 14 Days 02/21/21 patch PARoxetine [Paxil] 10 mg PO DAILY 30 Days tab 02/21/21 Ibuprofen [Motrin] 600 mg PO Q8HR PRN #20 tab 02/27/21 Allergies Allergy/AdvReac Type Severity Reaction Status Date / Time amoxicillin Allergy Rash/Hives Verified 02/27/21 04:56 Penicillins Allergy Rash/Hives Verified 02/27/21 04:56 Review of Systems ROS Statement: Those systems with pertinent positive or pertinent negative responses have been documented in the HPI. ROS Other: All systems not noted in ROS Statement are negative. Past Medical History Past Medical History: No Reported History Additional Past Medical History / Comment(s): multiplescoliosis History of Any Multi-Drug Resistant Organisms: None Reported Past Surgical History: No Surgical Hx Reported Past Psychological History: Anxiety, Depression, Schizophrenia Smoking Status: Current every day smoker Past Alcohol Use History: Abuse Past Drug Use History: Marijuana, Methamphetamine Course Vital Signs 02/27/21 04:52 Temperature 98.1 F Pulse Rate 117 H Respiratory 19 Rate Blood Pressure 90/58 O2 Sat by Pulse 98 Oximetry Disposition Clinical Impression: Foot sprain Disposition: HOME SELF-CARE Condition: Good Instructions (If sedation given, give patient instructions): Foot Sprain (ED) Prescriptions: Ibuprofen [Motrin] 600 mg PO Q8HR PRN #20 tab PRN Reason: Pain Is patient prescribed a controlled substance at d/c from ED?: No Referrals: Joel Ray MD [Primary Care Provider] - 1-2 days
--- NOTE | 2021-02-27 05:58 | XR ---
EXAMINATION TYPE: XR foot complete LT DATE OF EXAM: 02/27/2021 COMPARISON: NONE HISTORY: Foot pain TECHNIQUE: 3 views FINDINGS: Metatarsals are intact. I see no fracture nor dislocation. Joint spaces are normal. IMPRESSION: Negative left foot exam.
[2021-02-27] MEDS ORDERED: IBUPROFEN 600 MG TAB PO STA (06:15)
== END 2021-02-27 06:32 | disposition home or self-care (01) ==
LOC: EC 04:48
DX: S93.602A Unspecified sprain of left foot, initial encounter (principal); F17.200 Nicotine dependence, unspecified, uncomplicated; F12.90 Cannabis use, unspecified, uncomplicated; F15.90 Other stimulant use, unspecified, uncomplicated; Z88.0 Allergy status to penicillin; Z79.1 Long term (current) use of non-steroidal anti-inflammatories (NSAID); Z79.899 Other long term (current) drug therapy; W01.0XXA Fall on same level from slipping, tripping and stumbling without subsequent striking against object, initial encounter
CPT/HCPCS: 99284

== ENCOUNTER 2021-02-27 06:54 | Emergency (ER) | payer MEDICARE, OTHER ==
[2021-02-27 06:58] VITALS: BP 112/77; PULSE 87; RESP 19; TEMP 97.9
--- NOTE | 2021-02-27 07:50 | ED ---
General Adult HPI - General Chief complaint: Psychiatric Symptoms Stated complaint: Mental Health Time Seen by Provider: 02/27/21 07:00 Source: patient, RN notes reviewed, old records reviewed Mode of arrival: ambulatory - History of Present Illness Initial comments: 25-year-old male presenting with depression, suicidal ideation. Patient is requesting mental health evaluation. He states he is homeless. He's having thoughts of suicide and increased depression. He denies a suicide attempt or specific suicide plan. No physical complaints. - Related Data Previous Rx's Medication Instructions Recorded Mirtazapine [Remeron] 7.5 mg PO HS 30 Days tab 02/21/21 Nicotine 14Mg/24Hr Patch [Habitrol] 1 patch TRANSDERM DAILY 14 Days 02/21/21 patch PARoxetine [Paxil] 10 mg PO DAILY 30 Days tab 02/21/21 Ibuprofen [Motrin] 600 mg PO Q8HR PRN #20 tab 02/27/21 Allergies Allergy/AdvReac Type Severity Reaction Status Date / Time amoxicillin Allergy Rash/Hives Verified 02/27/21 06:57 Penicillins Allergy Rash/Hives Verified 02/27/21 06:57 Review of Systems ROS Statement: Those systems with pertinent positive or pertinent negative responses have been documented in the HPI. ROS Other: All systems not noted in ROS Statement are negative. Past Medical History Past Medical History: No Reported History Additional Past Medical History / Comment(s): multiplescoliosis History of Any Multi-Drug Resistant Organisms: None Reported Past Surgical History: No Surgical Hx Reported Past Psychological History: Anxiety, Depression, Schizophrenia Smoking Status: Current every day smoker Past Alcohol Use History: Abuse Past Drug Use History: Marijuana, Methamphetamine General Exam General appearance: alert, in no apparent distress Head exam: Present: atraumatic, normocephalic Eye exam: Present: normal appearance, PERRL ENT exam: Present: normal exam Neck exam: Present: normal inspection. Absent: tenderness, meningismus Respiratory exam: Present: normal lung sounds bilaterally. Absent: respiratory distress, wheezes Cardiovascular Exam: Present: regular rate, normal rhythm GI/Abdominal exam: Present: soft. Absent: distended, tenderness Extremities exam: Present: normal inspection, normal capillary refill Neurological exam: Present: alert, oriented X3 Psychiatric exam: Present: depressed, anxious, suicidal ideation Skin exam: Present: warm, dry, intact Course Vital Signs 02/27/21 06:54 Temperature 97.9 F Pulse Rate 87 Respiratory 19 Rate Blood Pressure 112/77 O2 Sat by Pulse 99 Oximetry - Reevaluation(s) Reevaluation #1: 02/27/21 07:50 Patient is medically cleared for EPS. Medical Decision Making - Medical Decision Making 25-year-old male who had been evaluated by EPS for psychiatric issues and homelessness. He has been cleared. He is not actively suicidal. He is given referral to a local shelters. Patient agreeable with discharge. Disposition Clinical Impression: Depression Disposition: HOME SELF-CARE Condition: Fair Instructions (If sedation given, give patient instructions): Depression (ED) Is patient prescribed a controlled substance at d/c from ED?: No Referrals: Joel Ray MD [Primary Care Provider] - 1-2 days Time of Disposition: 08:53
== END 2021-02-27 09:04 | disposition home or self-care (01) ==
LOC: EC 06:54
DX: F32.9 Major depressive disorder, single episode, unspecified (principal); R45.851 Suicidal ideations; F20.9 Schizophrenia, unspecified; F41.9 Anxiety disorder, unspecified; F17.200 Nicotine dependence, unspecified, uncomplicated; F12.90 Cannabis use, unspecified, uncomplicated; F15.90 Other stimulant use, unspecified, uncomplicated; Z59.0 Homelessness; Z88.0 Allergy status to penicillin; Z79.899 Other long term (current) drug therapy
CPT/HCPCS: 82075; 99284

== ENCOUNTER 2021-03-24 23:23 | Emergency (ER) | payer MEDICARE, OTHER ==
[2021-03-25 00:52] VITALS: BP 127/81; PULSE 99; RESP 18; TEMP 98
[2021-03-25] MEDS ORDERED: IPRATROPIUM-ALBUTEROL 3 ML NEB INHALATION STA (01:17)
[2021-03-25] MEDS ORDERED: ONDANSETRON 4 MG ODT STARTER PACK 2 TAB BTL PO STA (01:17)
--- NOTE | 2021-03-25 01:18 | ED ---
Nausea/Vomiting/Diarrhea HPI - General Chief complaint: Nausea/Vomiting/Diarrhea Stated complaint: Vomiting Time Seen by Provider: 03/25/21 01:00 Source: patient Mode of arrival: ambulatory - History of Present Illness Initial comments: 25-year-old male patient presents to the emergency department today for evaluation of vomiting. Patient states he had one episode of vomiting a pproximately 30 minutes after eating dinner. Denies any abdominal pain. Denies any diarrhea. Denies any sick contacts or recent travel. Denies fever or chills. Denies any upper respiratory symptoms. Patient denies any recent rash, cough, shortness of breath, chest pain, back pain, numbness, tingling, dizziness, weakness, hematuria, dysuria, urinary urgency, urinary frequency, headache, visual changes, or any other complaints. - Related Data Previous Rx's Medication Instructions Recorded Mirtazapine [Remeron] 7.5 mg PO HS 30 Days tab 02/21/21 Nicotine 14Mg/24Hr Patch [Habitrol] 1 patch TRANSDERM DAILY 14 Days 02/21/21 patch PARoxetine [Paxil] 10 mg PO DAILY 30 Days tab 02/21/21 Ibuprofen [Motrin] 600 mg PO Q8HR PRN #20 tab 02/27/21 Ondansetron [Zofran ODT] 4 mg PO Q8HR PRN #10 tab 03/25/21 Allergies Allergy/AdvReac Type Severity Reaction Status Date / Time amoxicillin Allergy Rash/Hives Verified 03/25/21 00:52 Penicillins Allergy Rash/Hives Verified 03/25/21 00:52 Review of Systems ROS Statement: Those systems with pertinent positive or pertinent negative responses have been documented in the HPI. ROS Other: All systems not noted in ROS Statement are negative. Past Medical History Past Medical History: No Reported History Additional Past Medical History / Comment(s): multiplescoliosis History of Any Multi-Drug Resistant Organisms: None Reported Past Surgical History: No Surgical Hx Reported Past Psychological History: Anxiety, Depression, Schizophrenia Smoking Status: Current every day smoker Past Alcohol Use History: Abuse Past Drug Use History: Marijuana, Methamphetamine General Exam General appearance: alert, in no apparent distress, other (This is a well- developed, well-nourished, nontoxic-appearing adult male patient in no acute distress. Vital signs upon presentation are temperature 98.0F, pulse 99, respirations 18, blood pressure 127/81, pulse ox 98% on room air.) Eye exam: Present: normal appearance, PERRL, EOMI. Absent: scleral icterus, conjunctival injection, periorbital swelling ENT exam: Present: normal exam, normal oropharynx, mucous membranes moist Respiratory exam: Present: normal lung sounds bilaterally. Absent: respiratory distress, wheezes, rales, rhonchi, stridor Cardiovascular Exam: Present: regular rate, normal rhythm, normal heart sounds. Absent: systolic murmur, diastolic murmur, rubs, gallop, clicks GI/Abdominal exam: Present: soft, normal bowel sounds. Absent: distended, t enderness, guarding, rebound, rigid Neurological exam: Present: alert, oriented X3, CN II-XII intact Psychiatric exam: Present: normal affect, normal mood Skin exam: Present: warm, dry, intact, normal color. Absent: rash Course Vital Signs 03/25/21 00:49 Temperature 98 F Pulse Rate 99 Respiratory 18 Rate Blood Pressure 127/81 O2 Sat by Pulse 98 Oximetry Medical Decision Making - Medical Decision Making 25-year-old male patient presents to the emergency department today for evaluation of vomiting. Had one episode of vomiting prior to arrival. Physical examination is unremarkable. Abdomen is soft and nontender. He is afebrile, vital signs. Patient was offered labs, he declined. He is given a dose of Zofran. To be discharged follow up with his primary care physician for recheck in 1-2 days. Return parameters discussed in detail. He verbalizes understanding and agrees with this plan. Case discussed with my attending Dr. Thomas. Disposition Clinical Impression: Vomiting Disposition: HOME SELF-CARE Condition: Good Instructions (If sedation given, give patient instructions): Acute Nausea and Vomiting (ED) Additional Instructions: Start with clear liquid diet and advance as tolerated. Follow-up with your primary care physician for recheck in 1-2 days. Return for any new, worsening, or concerning symptoms. Prescriptions: Ondansetron [Zofran ODT] 4 mg PO Q8HR PRN #10 tab PRN Reason: Nausea Is patient prescribed a controlled substance at d/c from ED?: No Referrals: Joel Ray MD [Primary Care Provider] - 1-2 days Time of Disposition: 01:17
== END 2021-03-25 01:40 | disposition home or self-care (01) ==
LOC: EC 23:23
DX: R11.10 Vomiting, unspecified (principal); F17.200 Nicotine dependence, unspecified, uncomplicated; Z88.0 Allergy status to penicillin
CPT/HCPCS: 99283; S0119

== ENCOUNTER 2021-04-21 04:48 | Emergency (ER) | payer MEDICARE, OTHER ==
[2021-04-21 04:56] VITALS: RESP 18; TEMP 97.7
--- NOTE | 2021-04-21 05:08 | ED ---
Fall HPI - General Chief Complaint: Fall Stated Complaint: seizure Time Seen by Provider: 04/21/21 05:03 Source: patient, EMS, RN notes reviewed, old records reviewed Mode of arrival: EMS Limitations: no limitations - History of Present Illness Initial Comments: This is a 25-year-old male who does admit to drinking alcohol tonight. Patient was feeling lightheaded dizzy and was a prior to arrival leg swelling chills secondary to likely alcohol intoxication lost his balance and fell sustaining some hand and as well as some knee pain. Did not his head no loss of consciousness. Patient denies any other complaints. Patient has no significant medical history takes no medications. MD Complaint: fall -: hour(s) Fall From: standing When Fall Occurred: 1 hour [employer] Fall Witnessed: yes, by family Place Fall Occurred: home Loss of Consciousness: none Prolonged Down Time?: no Symptoms Prior to Fall: none Location - Extremities: Left: Hand, Knee, Right: Hand, Knee Severity: moderate Severity scale (1-10): 2 Quality: dull Context: tripped/slipped Associated Symptoms: denies - Related Data Previous Rx's Medication Instructions Recorded Mirtazapine [Remeron] 7.5 mg PO HS 30 Days tab 02/21/21 Nicotine 14Mg/24Hr Patch [Habitrol] 1 patch TRANSDERM DAILY 14 Days 02/21/21 patch PARoxetine [Paxil] 10 mg PO DAILY 30 Days tab 02/21/21 Ibuprofen [Motrin] 600 mg PO Q8HR PRN #20 tab 02/27/21 Ondansetron [Zofran ODT] 4 mg PO Q8HR PRN #10 tab 03/25/21 Allergies Allergy/AdvReac Type Severity Reaction Status Date / Time amoxicillin Allergy Rash/Hives Verified 04/21/21 04:56 Penicillins Allergy Rash/Hives Verified 04/21/21 04:56 Review of Systems ROS Statement: Those systems with pertinent positive or pertinent negative responses have been documented in the HPI. ROS Other: All systems not noted in ROS Statement are negative. Past Medical History Past Medical History: No Reported History Additional Past Medical History / Comment(s): multiplescoliosis History of Any Multi-Drug Resistant Organisms: None Reported Past Surgical History: No Surgical Hx Reported Past Psychological History: Anxiety, Depression, Schizophrenia Smoking Status: Current every day smoker Past Alcohol Use History: Abuse Past Drug Use History: Marijuana, Methamphetamine General Exam General appearance: alert, in no apparent distress Head exam: Present: atraumatic, normocephalic, normal inspection Eye exam: Present: normal appearance, PERRL, EOMI. Absent: scleral icterus, conjunctival injection, periorbital swelling ENT exam: Present: normal exam, mucous membranes moist Neck exam: Present: normal inspection. Absent: tenderness, meningismus, lymphadenopathy Respiratory exam: Present: normal lung sounds bilaterally. Absent: respiratory distress, wheezes, rales, rhonchi, stridor Cardiovascular Exam: Present: regular rate, normal rhythm, normal heart sounds. Absent: systolic murmur, diastolic murmur, rubs, gallop, clicks GI/Abdominal exam: Present: soft, normal bowel sounds. Absent: distended, tenderness, guarding, rebound, rigid Extremities exam: Present: normal inspection, full ROM, normal capillary refill. Absent: tenderness, pedal edema, joint swelling, calf tenderness Back exam: Present: normal inspection Neurological exam: Present: alert, oriented X3, CN II-XII intact Psychiatric exam: Present: normal affect, normal mood Skin exam: Present: warm, dry, intact, normal color. Absent: rash Course Vital Signs 04/21/21 04/21/21 04:50 06:22 Temperature 97.7 F Pulse Rate 92 87 Respiratory 18 18 Rate Blood Pressure 129/69 102/57 O2 Sat by Pulse 95 95 Oximetry - Reevaluation(s) Reevaluation #1: Medical record is reviewed Patient symptoms are improved Patient's informed of results and questions are answered Patient is in no acute distress Medical Decision Making - Medical Decision Making 25 male for mechanical fall patient does have normal x-rays here in the ER and can be discharged - Radiology Data Radiology results: report reviewed (X-ray hand and knee are negative for acute medical injury), image reviewed Disposition Clinical Impression: Fall Disposition: HOME SELF-CARE Condition: Fair Instructions (If sedation given, give patient instructions): Fall Prevention for Older Adults (ED) Is patient prescribed a controlled substance at d/c from ED?: No Referrals: Joel Ray MD [Primary Care Provider] - 1-2 days
--- NOTE | 2021-04-21 05:25 | XR ---
EXAMINATION TYPE: XR knee limited LT DATE OF EXAM: 04/21/2021 COMPARISON: 09/28/2012 HISTORY: Pain TECHNIQUE: 2 views FINDINGS: There is no sign of fracture nor dislocation. Joint spaces are normal. There is no sign of joint effusion. IMPRESSION: Negative left knee exam. No fracture.
--- NOTE | 2021-04-21 05:27 | XR ---
EXAMINATION TYPE: XR hand complete LT DATE OF EXAM: 04/21/2021 COMPARISON: NONE HISTORY: Fall. Pain. TECHNIQUE: 3 views FINDINGS: Metacarpals are intact. Carpal bones are intact. I see no fracture nor dislocation. Joint s paces appear normal. IMPRESSION: Negative left hand exam. No fracture.
[2021-04-21 06:24] VITALS: BP 102/57; PULSE 87
== END 2021-04-21 06:29 | disposition home or self-care (01) ==
LOC: EC 04:48
DX: M25.562 Pain in left knee (principal); M79.642 Pain in left hand; W01.0XXA Fall on same level from slipping, tripping and stumbling without subsequent striking against object, initial encounter; F32.9 Major depressive disorder, single episode, unspecified; F41.9 Anxiety disorder, unspecified; F25.9 Schizoaffective disorder, unspecified; F17.200 Nicotine dependence, unspecified, uncomplicated; F12.90 Cannabis use, unspecified, uncomplicated; F15.90 Other stimulant use, unspecified, uncomplicated
CPT/HCPCS: 99284

== ENCOUNTER 2021-05-16 23:47 | Emergency (ER) | payer MEDICARE, OTHER ==
[2021-05-17 00:02] VITALS: TEMP 98
[2021-05-17] MEDS ORDERED: DIPH,PERTUS(ACELL)TETVAC-LF 0.5 ML VIAL IM ONE (00:07)
[2021-05-17] MEDS ORDERED: LIDOCAINE 1% INJ 10MG/ML (20 ML MDV) SQ STA (00:08)
[2021-05-17] MEDS ORDERED: KETOROLAC 15 MG/ML 1 ML VIAL IM STA (00:24)
--- NOTE | 2021-05-17 01:02 | ED ---
Wound/Laceration HPI - General Chief Complaint: Wound/Laceration Stated Complaint: Dog Bite to Lip Time Seen by Provider: 05/17/21 00:15 Source: patient, RN notes reviewed Mode of arrival: ambulatory - History of Present Illness Initial Comments: Patient is a 25-year-old male that presents to emergency by with a left upper lip laceration. Notes his walker bar when he got bit by dog. Patient denied any rashes or complaints. He noted his lip was not bleeding. He notes that he was not up-to-date on tetanus shot. He was otherwise well-appearing although slightly intoxicated. He denied chest pain shortness of breath headache nausea vomiting diarrhea constipation fever fatigue chills. - Related Data Previous Rx's Medication Instructions Recorded Mirtazapine [Remeron] 7.5 mg PO HS 30 Days tab 02/21/21 Nicotine 14Mg/24Hr Patch [Habitrol] 1 patch TRANSDERM DAILY 14 Days 02/21/21 patch PARoxetine [Paxil] 10 mg PO DAILY 30 Days tab 02/21/21 Ibuprofen [Motrin] 600 mg PO Q8HR PRN #20 tab 02/27/21 Ondansetron [Zofran ODT] 4 mg PO Q8HR PRN #10 tab 03/25/21 Doxycycline Monohydrate [Monodox] 100 mg PO Q12HR #20 cap 05/17/21 Allergies Allergy/AdvReac Type Severity Reaction Status Date / Time amoxicillin Allergy Rash/Hives Verified 04/21/21 04:56 latex Allergy Itching Verified 05/17/21 00:02 Penicillins Allergy Rash/Hives Verified 04/21/21 04:56 Review of Systems ROS Statement: Those systems with pertinent positive or pertinent negative responses have been documented in the HPI. ROS Other: All systems not noted in ROS Statement are negative. Past Medical History Past Medical History: No Reported History Additional Past Medical History / Comment(s): multiplescoliosis History of Any Multi-Drug Resistant Organisms: None Reported Past Surgical History: No Surgical Hx Reported Past Psychological History: Anxiety, Depression, Schizophrenia Smoking Status: Current every day smoker Past Alcohol Use History: Abuse Past Drug Use History: Marijuana, Methamphetamine General Exam General appearance: alert, in no apparent distress Head exam: Present: atraumatic, normocephalic, normal inspection Eye exam: Present: normal appearance, PERRL, EOMI. Absent: scleral icterus, conjunctival injection, periorbital swelling ENT exam: Present: normal exam, mucous membranes moist Neck exam: Present: normal inspection Respiratory exam: Present: normal lung sounds bilaterally. Absent: respiratory distress, wheezes, rales, rhonchi, stridor Cardiovascular Exam: Present: regular rate, normal rhythm, normal heart sounds. Absent: systolic murmur, diastolic murmur, rubs, gallop, clicks Extremities exam: Present: normal inspection, full ROM, normal capillary refill. Absent: tenderness, pedal edema, joint swelling, calf tenderness Neurological exam: Present: alert, oriented X3 Psychiatric exam: Present: normal affect, normal mood Skin exam: Present: warm, dry, intact, normal color. Absent: rash Expanded Type of lesion: Present: laceration (Left upper lip through the vermilion border.) Course Vital Signs 05/17/21 00:00 Temperature 98 F Pulse Rate 95 Respiratory 18 Rate Blood Pressure 124/80 O2 Sat by Pulse 98 Oximetry Procedures - Laceration Laceration #1 Consent Obtained: verbal consent Indication: laceration Site: lip (Through the vermilion border) Description: linear, involves lilian border Depth: simple, single layer Anesthetic Used: lidocaine 1% Anesthesia Technique: local infiltration Type of Sutures: nylon Size of Sutures: 5-0 Technique: simple, interrupted Patient Tolerated Procedure: well, no complications Medical Decision Making - Medical Decision Making 25-year-old male with a laceration to left upper lip from dog bite. Lidocaine, 15 mg of Toradol, tetanus vaccine updated. Patient tolerated suturing well. Antibiotics sent to pharmacy. Case discussed with Dr. Delarosa, patient discharge home with follow-up primary care. Disposition Clinical Impression: Laceration, Dog bite Disposition: HOME SELF-CARE Condition: Stable Instructions (If sedation given, give patient instructions): Laceration (ED), Care For Your Stitches (ED) Additional Instructions: Please return to the Emergency Department if symptoms worsen or any other concerns. Follow-up with primary care 1-2 days. Keep area clean and dry. Taken otherwise as prescribed until complete. Please return in 7-10 days to have sutures removed Prescriptions: Doxycycline Monohydrate [Monodox] 100 mg PO Q12HR #20 cap Is patient prescribed a controlled substance at d/c from ED?: No Referrals: Joel Rya MD [Primary Care Provider] - 1-2 days Time of Disposition: 01:02
[2021-05-17] MEDS ORDERED: IPRATROPIUM-ALBUTEROL 3 ML NEB INHALATION STA (01:07)
[2021-05-17 01:10] VITALS: BP 129/75; RESP 26
[2021-05-17 01:24] VITALS: PULSE 80
== END 2021-05-17 01:25 | disposition home or self-care (01) ==
LOC: EC 23:47
DX: S01.511A Laceration without foreign body of lip, initial encounter (principal); F41.9 Anxiety disorder, unspecified; F32.9 Major depressive disorder, single episode, unspecified; F17.200 Nicotine dependence, unspecified, uncomplicated; F12.90 Cannabis use, unspecified, uncomplicated; Z88.0 Allergy status to penicillin; Z91.040 Latex allergy status; W54.0XXA Bitten by dog, initial encounter
CPT/HCPCS: 99283; 96372; 90471; 12011; 94640; 90715; J2001; J1885

== ENCOUNTER 2021-05-24 14:37 | Emergency (ER) | payer MEDICARE, OTHER ==
[2021-05-24 15:11] VITALS: TEMP 98.1
[2021-05-24] MEDS ORDERED: ALBUTEROL HFA INHALER INHALATION STA (15:48)
--- NOTE | 2021-05-24 16:48 | XR ---
EXAMINATION TYPE: XR chest 2V DATE OF EXAM: 05/24/2021 COMPARISON: 04/11/2017 INDICATION: Cough, congestion short of breath TECHNIQUE: Frontal and lateral views of the chest are obtained. FINDINGS: The heart size is normal. The pulmonary vasculature is normal. The lungs are clear. IMPRESSION: 1. No acute pulmonary process.
--- NOTE | 2021-05-24 17:49 | ED ---
URI HPI - General Chief Complaint: Upper Respiratory Infection Stated Complaint: RAMBO Time Seen by Provider: 05/24/21 15:36 Source: patient, RN notes reviewed Mode of arrival: ambulatory Limitations: no limitations - History of Present Illness Initial Comments: Patient is a 25-year-old male that presents to emergency department complaining of shortness of breath, nasal congestion and chest congestion. He notes he does have a history of COPD per him and his primary care. Patient denied being around any Covid sick contacts. He notes that he is vaccinated. Patient was otherwise well-appearing. He denied any other issues or complaints. He denied chest pain headache nausea vomiting diarrhea constipation fever fatigue chills. - Related Data Previous Rx's Medication Instructions Recorded Mirtazapine [Remeron] 7.5 mg PO HS 30 Days tab 02/21/21 Nicotine 14Mg/24Hr Patch [Habitrol] 1 patch TRANSDERM DAILY 14 Days 02/21/21 patch PARoxetine [Paxil] 10 mg PO DAILY 30 Days tab 02/21/21 Ibuprofen [Motrin] 600 mg PO Q8HR PRN #20 tab 02/27/21 Ondansetron [Zofran ODT] 4 mg PO Q8HR PRN #10 tab 03/25/21 Doxycycline Monohydrate [Monodox] 100 mg PO Q12HR #20 cap 05/17/21 Allergies Allergy/AdvReac Type Severity Reaction Status Date / Time amoxicillin Allergy Rash/Hives Verified 05/24/21 15:10 latex Allergy Itching Verified 05/24/21 15:10 Penicillins Allergy Rash/Hives Verified 05/24/21 15:10 Review of Systems ROS Statement: Those systems with pertinent positive or pertinent negative responses have been documented in the HPI. ROS Other: All systems not noted in ROS Statement are negative. Past Medical History Past Medical History: No Reported History Additional Past Medical History / Comment(s): multiplescoliosis History of Any Multi-Drug Resistant Organisms: None Reported Past Surgical History: No Surgical Hx Reported Past Psychological History: Anxiety, Depression, Schizophrenia Smoking Status: Light tobacco smoker Past Alcohol Use History: Rare Past Drug Use History: Marijuana General Exam Limitations: no limitations General appearance: alert, in no apparent distress Head exam: Present: atraumatic, normocephalic, normal inspection Eye exam: Present: normal appearance, PERRL, EOMI. Absent: scleral icterus, conjunctival injection, periorbital swelling ENT exam: Present: normal exam, mucous membranes moist Neck exam: Present: normal inspection Respiratory exam: Present: normal lung sounds bilaterally. Absent: respiratory distress, wheezes, rales, rhonchi, stridor Cardiovascular Exam: Present: regular rate, normal rhythm, normal heart sounds. Absent: systolic murmur, diastolic murmur, rubs, gallop, clicks Extremities exam: Present: normal inspection, full ROM, normal capillary refill. Absent: tenderness, pedal edema, joint swelling, calf tenderness Neurological exam: Present: alert, oriented X3 Psychiatric exam: Present: normal affect, normal mood Skin exam: Present: warm, dry, intact, normal color. Absent: rash Course Vital Signs 05/24/21 15:06 Temperature 98.1 F Pulse Rate 70 Respiratory 20 Rate Blood Pressure 116/69 O2 Sat by Pulse 99 Oximetry Medical Decision Making - Medical Decision Making 25-year-old male complaining of shortness of breath nasal congestion chest congestion. Albuterol inhaler, chest x-ray, Covid test ordered. Covid test negative. Chest x-ray negative for any acute cardio point process. Upon evaluation patient states inhaler did make him feel better and he is ready discharge home. Case discussed with Dr. Martin, patient can discharge home. Patient most likely experiencing upper respiratory tract infection or seasonal ALLERGIES and nasal congestion due to weather change. - Lab Data Lab Results 05/24/21 Range/Units 16:03 Coronavirus (PCR) Not Detected (Not Detectd) - Radiology Data Radiology results: report reviewed, image reviewed Test x-ray: No acute cardiopulmonary process. Disposition Clinical Impression: Acute upper respiratory infection, Nasal congestion Disposition: HOME SELF-CARE Condition: Stable Instructions (If sedation given, give patient instructions): Upper Respiratory Infection (ED) Additional Instructions: Please return to the Emergency Department if symptoms worsen or any other concerns. Follow-up with primary care in 1-2 days pain Use rescue inhaler as prescribed. Take [id number] Flonase and decongestions to help with nasal congestion. Is patient prescribed a controlled substance at d/c from ED?: No Referrals: Joel Ray MD [Primary Care Provider] - 1-2 days Time of Disposition: 17:49
[2021-05-24 17:54] VITALS: BP 124/72; PULSE 76; RESP 18
== END 2021-05-24 17:54 | disposition home or self-care (01) ==
LOC: EC 14:37
DX: J06.9 Acute upper respiratory infection, unspecified (principal); F41.9 Anxiety disorder, unspecified; J44.9 Chronic obstructive pulmonary disease, unspecified; F32.9 Major depressive disorder, single episode, unspecified; F12.90 Cannabis use, unspecified, uncomplicated; F17.200 Nicotine dependence, unspecified, uncomplicated; Z88.0 Allergy status to penicillin; Z79.1 Long term (current) use of non-steroidal anti-inflammatories (NSAID); Z79.899 Other long term (current) drug therapy; Z20.822 Contact with and (suspected) exposure to COVID-19
CPT/HCPCS: 71046; 87635; 94640; 99285

== ENCOUNTER 2021-08-07 21:59 | Emergency (ER) | payer MEDICARE, OTHER ==
[2021-08-07 22:42] VITALS: BP 116/64; PULSE 85; RESP 16; TEMP 98.7
--- NOTE | 2021-08-07 22:45 | ED ---
General Adult HPI - General Chief complaint: Chest Pain Stated complaint: R side pain Time Seen by Provider: 08/07/21 22:45 Source: patient Mode of arrival: ambulatory Limitations: no limitations - History of Present Illness Initial comments: Patient presents to the ED with his girlfriend for evaluation. Patient states that he has had a cough and nasal congestion for the past 2 days, and he states that he has developed right inferolateral chest wall pain today. Patient states that his pain is worse with coughing and with deep inspiration. Patient also states that his pain is worse with "stretching". Patient denies direct chest trauma, fever or chills, headache, focal numbness/weakness/neuro deficit, dyspnea, hemoptysis, palpitations, dizziness, abdominal pain, back pain, nausea or vomiting, diarrhea or constipation, dysuria/hematuria/urinary frequency/urinary symptoms, leg or calf swelling or pain, or any other symptoms or complaints. Patient states that he is vaccinated for Covid. - Related Data Previous Rx's Medication Instructions Recorded Mirtazapine [Remeron] 7.5 mg PO HS 30 Days tab 02/21/21 Nicotine 14Mg/24Hr Patch [Habitrol] 1 patch TRANSDERM DAILY 14 Days 02/21/21 patch PARoxetine [Paxil] 10 mg PO DAILY 30 Days tab 02/21/21 Ibuprofen [Motrin] 600 mg PO Q8HR PRN #20 tab 02/27/21 Ondansetron [Zofran ODT] 4 mg PO Q8HR PRN #10 tab 03/25/21 Doxycycline Monohydrate [Monodox] 100 mg PO Q12HR #20 cap 05/17/21 Allergies Allergy/AdvReac Type Severity Reaction Status Date / Time amoxicillin Allergy Rash/Hives Verified 05/24/21 15:10 latex Allergy Itching Verified 05/24/21 15:10 Penicillins Allergy Rash/Hives Verified 05/24/21 15:10 Review of Systems ROS Statement: Those systems with pertinent positive or pertinent negative responses have been documented in the HPI. ROS Other: All systems not noted in ROS Statement are negative. Past Medical History Past Medical History: COPD Additional Past Medical History / Comment(s): multiplescoliosis History of Any Multi-Drug Resistant Organisms: None Reported Past Surgical History: No Surgical Hx Reported Past Psychological History: Anxiety, Depression, Schizophrenia Smoking Status: Light tobacco smoker Past Alcohol Use History: Rare Past Drug Use History: Marijuana General Exam Limitations: no limitations General appearance: alert, in no apparent distress Head exam: Present: atraumatic, normocephalic Eye exam: Present: normal appearance, EOMI ENT exam: Present: normal oropharynx, mucous membranes moist Neck exam: Present: other (Trachea is in midline) Respiratory exam: Present: normal lung sounds bilaterally, other (Reproducible right inferolateral chest wall tenderness; no crepitation or deformity is appreciated). Absent: respiratory distress, wheezes, rales, rhonchi, stridor Cardiovascular Exam: Present: regular rate, normal rhythm, normal heart sounds, other (Normal radial pulses bilaterally) GI/Abdominal exam: Present: soft. Absent: distended, tenderness, guarding Extremities exam: Present: full ROM, other (Negative Homans sign bilaterally). Absent: tenderness, pedal edema, calf tenderness Back exam: Present: full ROM. Absent: tenderness, CVA tenderness (R), CVA tenderness (L) Neurological exam: Present: alert, oriented X3. Absent: motor sensory deficit Psychiatric exam: Present: normal affect, normal mood Skin exam: Present: warm, dry, intact, normal color Course Vital Signs 08/07/21 22:32 Temperature 98.7 F Pulse Rate 85 Respiratory 16 Rate Blood Pressure 116/64 O2 Sat by Pulse 99 Oximetry - Reevaluation(s) Reevaluation #1: 08/08/21 00:58 Patient remains alert and breathing comfortably with a normal room air oxygen saturation. Patient denies development of any new symptoms while in the ED. Patient and girlfriend are aware the patient's test results, and patient feels comfortable being discharged home at this time. Patient was counseled about upper respiratory infections and chest pain/strains. Patient was clearly explained return and follow-up instructions, and he was instructed to have a low threshold for return to the emergency department should his symptoms worsen. Patient was also instructed to follow up closely with his primary care provider. Patient feels comfortable with this plan. Medical Decision Making - Medical Decision Making Patient's labs and chest x-ray are fairly unremarkable. Patient's d-dimer is negative. Patient's Covid test is also negative. Patient is breathing comfortably with a normal room air oxygen saturation. Patient is afebrile. Patient's right-sided chest pain is reproducible with palpation, and patient reports that his pain is worse with coughing and stretching. I suspect that the patient's pain is likely chest wall in etiology. I do not suspect an emergent medical condition at this time. Will discharge patient home with his girlfriend at this time. - Lab Data Result diagrams: 08/08/21 00:12 08/08/21 00:12 Lab Results 08/08/21 08/08/21 08/08/21 Range/Units 00:12 00:12 00:12 WBC 8.0 (3.8-10.6) k/uL RBC 4.70 (4.30-5.90) m/uL Hgb 14.4 (13.0-17.5) gm/dL Hct 42.7 (39.0-53.0) % MCV 90.9 (80.0-100.0) fL MCH 30.6 (25.0-35.0) pg MCHC 33.6 (31.0-37.0) g/dL RDW 12.7 (11.5-15.5) % Plt Count 227 (150-450) k/uL MPV 7.5 Neutrophils % 45 % Lymphocytes % 42 % Monocytes % 5 % Eosinophils % 4 % Basophils % 1 % Neutrophils # 3.6 (1.3-7.7) k/uL Lymphocytes # 3.4 (1.0-4.8) k/uL Monocytes # 0.4 (0-1.0) k/uL Eosinophils # 0.4 (0-0.7) k/uL Basophils # 0.1 (0-0.2) k/uL D-Dimer 0.35 (<0.60) mg/L FEU Sodium (137-145) mmol/L Potassium (3.5-5.1) mmol/L Chloride (98-107) mmol/L Carbon Dioxide (22-30) mmol/L Anion Gap mmol/L BUN (9-20) mg/dL Creatinine (0.66-1.25) mg/dL Est GFR (CKD-EPI)AfAm (>60 ml/min/1.73 sqM) Est GFR (CKD-EPI)NonAf (>60 ml/min/1.73 sqM) Glucose (74-99) mg/dL Calcium (8.4-10.2) mg/dL Total Bilirubin (0.2-1.3) mg/dL AST (17-59) U/L ALT (4-49) U/L Alkaline Phosphatase (38-126) U/L Total Protein (6.3-8.2) g/dL Albumin (3.5-5.0) g/dL Coronavirus (PCR) Not Detected (Not Detectd) 08/08/21 Range/Units 00:12 WBC (3.8-10.6) k/uL RBC (4.30-5.90) m/uL Hgb (13.0-17.5) gm/dL Hct (39.0-53.0) % MCV (80.0-100.0) fL MCH (25.0-35.0) pg MCHC (31.0-37.0) g/dL RDW (11.5-15.5) % Plt Count (150-450) k/uL MPV Neutrophils % % Lymphocytes % % Monocytes % % Eosinophils % % Basophils % % Neutrophils # (1.3-7.7) k/uL Lymphocytes # (1.0-4.8) k/uL Monocytes # (0-1.0) k/uL Eosinophils # (0-0.7) k/uL Basophils # (0-0.2) k/uL D-Dimer (<0.60) mg/L FEU Sodium 139 (137-145) mmol/L Potassium 4.5 (3.5-5.1) mmol/L Chloride 108 H (98-107) mmol/L Carbon Dioxide 23 (22-30) mmol/L Anion Gap 8 mmol/L BUN 12 (9-20) mg/dL Creatinine 0.76 (0.66-1.25) mg/dL Est GFR (CKD-EPI)AfAm >90 (>60 ml/min/1.73 sqM) Est GFR (CKD-EPI)NonAf >90 (>60 ml/min/1.73 sqM) Glucose 71 L (74-99) mg/dL Calcium 9.3 (8.4-10.2) mg/dL Total Bilirubin 1.1 (0.2-1.3) mg/dL AST 38 (17-59) U/L ALT 20 (4-49) U/L Alkaline Phosphatase 57 (38-126) U/L Total Protein 6.9 (6.3-8.2) g/dL Albumin 4.0 (3.5-5.0) g/dL Coronavirus (PCR) (Not Detectd) - Radiology Data Chest x-ray: Normal chest. No change. Disposition Clinical Impression: Chest wall muscle strain, Upper respiratory infection Disposition: HOME SELF-CARE Condition: Stable Instructions (If sedation given, give patient instructions): Chest Pain (ED), Upper Respiratory Infection (ED), Chest Wall Pain (ED) Additional Instructions: Return to the ER immediately should you develop new or worsening pain, shortness of breath, a high fever, feeling dizzy or faint, or new or worsening symptoms. Follow up closely with your primary care provider. Is patient prescribed a controlled substance at d/c from ED?: No Referrals: Joel Ray MD [Primary Care Provider] - 1-2 days Time of Disposition: 01:00
--- NOTE | 2021-08-08 00:13 | XR ---
EXAMINATION TYPE: XR chest 2V DATE OF EXAM: 08/08/2021 COMPARISON: 05/24/2021 HISTORY: Cough TECHNIQUE: FINDINGS: Heart and mediastinum are normal. Lungs are clear. Diaphragm is normal. Bony thorax appears normal. Pulmonary vascularity is normal. IMPRESSION: Normal chest. No change.
[2021-08-08 00:38] LABS: ALT 20 U/L (4-49); African American GFR (CKD) >90 (>60 ml/min/1.73 sqM); Anion Gap 8 mmol/L; Blood Urea Nitrogen 12 mg/dL (9-20); Calcium 9.3 mg/dL (8.4-10.2); Carbon Dioxide 23 mmol/L (22-30); Chloride 108 mmol/L (98-107); Glucose 71 mg/dL (74-99); Non-African American GFR(CKD) >90 (>60 ml/min/1.73 sqM); Sodium 139 mmol/L (137-145)
[2021-08-08 00:39] LABS: AST 38 U/L (17-59); Alkaline Phosphatase 57 U/L (38-126); Potassium 4.5 mmol/L (3.5-5.1); Total Bilirubin 1.1 mg/dL (0.2-1.3); Total Protein 6.9 g/dL (6.3-8.2)
[2021-08-08 00:41] LABS: Basophils # (A) 0.1 k/uL (0-0.2); Basophils % (A) 1 %; Eosinophils # (A) 0.4 k/uL (0-0.7); Eosinophils % (A) 4 %; HCT 42.7 % (39.0-53.0); HGB 14.4 gm/dL (13.0-17.5); Lymphocytes # (A) 3.4 k/uL (1.0-4.8); Lymphocytes % (A) 42 %; MCH 30.6 pg (25.0-35.0); MCHC 33.6 g/dL (31.0-37.0); MCV 90.9 fL (80.0-100.0); Mean Platelet Volume 7.5; Monocytes # (A) 0.4 k/uL (0-1.0); Monocytes % (A) 5 %; Neutrophils # (A) 3.6 k/uL (1.3-7.7); Neutrophils % (A) 45 %; Platelet Count 227 k/uL (150-450); RDW 12.7 % (11.5-15.5)
== END 2021-08-08 01:06 | disposition home or self-care (01) ==
LOC: EC 21:59
DX: S29.011A Strain of muscle and tendon of front wall of thorax, initial encounter (principal); J06.9 Acute upper respiratory infection, unspecified; Z20.822 Contact with and (suspected) exposure to COVID-19; J44.9 Chronic obstructive pulmonary disease, unspecified; F17.200 Nicotine dependence, unspecified, uncomplicated; F12.90 Cannabis use, unspecified, uncomplicated; F32.A Depression, unspecified; F41.9 Anxiety disorder, unspecified; F20.9 Schizophrenia, unspecified; Z79.1 Long term (current) use of non-steroidal anti-inflammatories (NSAID); Z79.899 Other long term (current) drug therapy; X58.XXXA Exposure to other specified factors, initial encounter; Z88.0 Allergy status to penicillin
CPT/HCPCS: 36415; 71046; 80053; 85025; 85379; 87635; 99285